=== PATIENT | male | born 1970 | race Caucasian/White ===

== ENCOUNTER 2020-03-02 12:32 | Day surgery (SDC) | payer OTHER ==
[2020-03-01 08:51] VITALS: BMI 37.2
[~2020-03-02 12:32] MED LIST: LACTATED RINGERS 1,000 ML IV SCH; LIDOCAINE 1% (10MG/ML) FOR IV START INTRADERMA PRN; MIDAZOLAM 2 MG/2 ML VIAL IV PRN
[2020-03-02 13:21] VITALS: TEMP 97
[2020-03-02] MEDS ORDERED: PROPOFOL 10 MG/ML 20 ML VIAL IV ONE (13:27)
--- NOTE | 2020-03-02 13:42 | P.PCN ---
Date of Procedure: 03/02/20 Procedure(s) Performed: BRIEF HISTORY: Patient is a 49-year-old pleasant white male scheduled for an elective colonoscopy as a part of screening for colorectal neoplasia. He has family history of colon cancer in grandfather at age 60 and colon polyps in dad and 2 siblings.. PROCEDURE PERFORMED: Colonoscopy. PREOPERATIVE DIAGNOSIS: Screening for colon cancer/family history of colon cancer. IV sedation per Anesthesia. PROCEDURE: After informed consent was obtained, the patient, was brought into [facility] endoscopy unit. IV sedation was administered by Anesthesia under continuous monitoring. Digital rectal examination was normal. Initially the Olympus CF-160 flexible video colonoscope was then inserted in the rectum, gradually advanced into the cecum without any difficulty. Careful examination was performed as the scope was gradually being withdrawn. Ileocecal valve and the appendiceal orifice were visualized and appeared normal. Prep was excellent. Mucosa of the cecum, ascending colon, transverse colon, descending colon, sigmoid colon, and rectum appeared normal. Retroflexion was performed in the rectum and no lesions were seen. The patient tolerated the procedure well. IMPRESSION: Normal-appearing colon from rectum to cecum with no evidence of colorectal neoplasia. RECOMMENDATIONS: Findings of this examination were discussed with the patient is well as his family. He was advised to have a repeat screening colonoscopy every 5 years because of the family history of colon cancer.
[2020-03-02 13:58] VITALS: BP 128/78; PULSE 66; RESP 20
== END 2020-03-02 14:32 | disposition home or self-care (01) ==
LOC: ORWHC2ENDO 12:32
PROVIDERS: ATTEND Internal Medicine Gastroenterology
DX: Z12.11 Encounter for screening for malignant neoplasm of colon (principal); I10 Essential (primary) hypertension; Z79.899 Other long term (current) drug therapy; Z80.0 Family history of malignant neoplasm of digestive organs; Z83.71 Family history of colonic polyps
CPT/HCPCS: J2704; G0105

== ENCOUNTER 2022-07-29 16:50 | Emergency (ER) | payer OTHER ==
[2022-07-29 16:57] VITALS: RESP 18; TEMP 98.2
--- NOTE | 2022-07-29 17:28 | XR ---
EXAMINATION TYPE: XR hand complete LT DATE OF EXAM: 07/29/2022 COMPARISON: NONE HISTORY: Foreign body TECHNIQUE: 3 views FINDINGS: There is a thin nail (wire sanchez) foreign body projected in the soft tissues at the base of the distal phalanx of the index finger. No fracture nor dislocation. Foreign body appears to be on th e dorsal aspect of the distal phalanx. IMPRESSION: Nail foreign body in the index finger as above. No fracture.
[2022-07-29] MEDS ORDERED: LIDOCAINE 1% INJ 10MG/ML (30 ML VIAL-PF) SQ ONE (19:07)
[2022-07-29] MEDS ORDERED: CEPHALEXIN 500MG STARTER PACK 4 CAP BTL PO STA (19:13)
--- NOTE | 2022-07-29 19:25 | ED ---
Skin/Abscess/FB HPI - General Chief complaint: Skin/Abscess/Foreign Body Stated complaint: Nail in finger,PCP sent Time Seen by Provider: 07/29/22 19:06 Source: patient, RN notes reviewed Mode of arrival: ambulatory Limitations: no limitations - History of Present Illness Initial comments: This is a pleasant, [id number], 52-year-old male who presents to the emergency department after he inadvertently sustained a nail injury to his left index finger. Is working with a nail about 4 PM. Patient ended up going to his regular physician's office was sent here for evaluation. Patient states his tetanus was updated at the office. No other injuries. His complaints of pain to the finger which is exacerbated by movement and touching of the nail itself. This involves the distal phalanx area. No headache, no fever or chills, no changes in vision or hearing, no sore throat or difficulty with speech, no neck pain, no chest pain or shortness of breath, no abdominal pain, no nausea or vomiting, no changes in urination or bowel movements, no numbness or tingling, no skin rashes or lesions. Past medical, surgical, social, and family history reviewed. complaint: foreign body - Related Data Home Medications Medication Instructions Recorded Confirmed Enalapril/Hctz (Unknown Dose) 1 tab PO DAILY 03/01/20 03/02/20 Previous Rx's Medication Instructions Recorded Cephalexin [Keflex] 500 mg PO Q6HR #28 cap 07/29/22 HYDROcodone/APAP 5-325MG [Jackson 1 tab PO Q6HR PRN 3 Days #12 tab 07/29/22 5-325] Allergies Allergy/AdvReac Type Severity Reaction Status Date / Time No Known Allergies Allergy Verified 07/29/22 16:57 Review of Systems ROS Statement: Those systems with pertinent positive or pertinent negative responses have been documented in the HPI. ROS Other: All systems not noted in ROS Statement are negative. Past Medical History Past Medical History: Hypertension Additional Past Medical History / Comment(s): FAMILY HX OF COLON POLYPS AND COLON CANCER. History of Any Multi-Drug Resistant Organisms: None Reported Past Surgical History: No Surgical Hx Reported Past Anesthesia/Blood Transfusion Reactions: Motion Sickness Additional Past Anesthesia/Blood Transfusion Reaction / Comment(s): NO ANESTHESIA HX. Past Psychological History: No Psychological Hx Reported Past Alcohol Use History: Occasional Past Drug Use History: None Reported - Past Family History Father Additional Family Medical History / Comment(s): COLON POLYPS, PTS GRAND FATHER HAD COLON CANCER. Brother(s) Additional Family Medical History / Comment(s): COLON POLYPS Sister(s) Additional Family Medical History / Comment(s): COLON POLYPS Mother Family Medical History: Deep Vein Thrombosis (DVT), Pulmonary Embolus General Exam Limitations: no limitations General appearance: alert, in no apparent distress, obese Head exam: Present: atraumatic, normocephalic, normal inspection Eye exam: Present: normal appearance, EOMI ENT exam: Present: normal exam Neck exam: Present: normal inspection. Absent: tenderness, meningismus, lymphadenopathy Respiratory exam: Present: normal lung sounds bilaterally. Absent: respiratory distress, wheezes, rales, rhonchi, stridor Cardiovascular Exam: Present: regular rate, normal rhythm, normal heart sounds. Absent: systolic murmur, diastolic murmur, rubs, gallop, clicks Extremities exam: Present: tenderness (Patient has tenderness to the distal phalanx of left index finger with a notable metallic foreign body. No other abnormalities, no other injuries. Full range of motion all joints. Full tendon strength in all planes. Pulses are normal), normal capillary refill Neurological exam: Present: alert, oriented X3, CN II-XII intact. Absent: motor sensory deficit Psychiatric exam: Present: normal affect, normal mood Skin exam: Present: warm, dry, normal color. Absent: rash Course Vital Signs 07/29/22 16:54 Temperature 98.2 F Pulse Rate 106 H Respiratory 18 Rate Blood Pressure 142/84 O2 Sat by Pulse 97 Oximetry Procedures - Forgein Body Removal Soft Tissue Consent Obtained: verbal consent Site: upper extremity (Left index finger) Anesthetic Used: lidocaine 1% (Without epinephrine) Amount (mLs): 3 Foreign Body Suspected: Metal (Nailsmall) Foreign Body Removed: yes Foreign Body Removal Technique: Other (Needle compactor driver) Patient Tolerated Procedure: well, no complications Additional Comments: Patient tolerated well. Finger soaked and diluted Betadine afterwards. Bacitracin applied. Band-Aid applied. Finger splint applied. Distal neurovascular status intact. Tendon function intact both pre-and post- application. Medical Decision Making - Medical Decision Making Foreign body was removed without difficulty. Prophylactic antibiotics with cephalexin. I did agree to a short course of Jackson. Patient given follow-up with the hand surgeon. Told to follow up for wound check in 2 days without fail. Discussed possibility of occult bony injury or other soft tissue injury such as nerve or tendon. Patient was told to return to the ER for any signs or symptoms worsen. Told to return immediately if any other problems arise. All questions answered. Treatment plan discussed. Patient in agreement Every effort has been made to ensure accuracy of this dictation. However, due to the limitations of electronic medical records and dictation devices, errors in charting still occur. Radioisotope Technologist Dr. Nguyen - Radiology Data Radiology results: report reviewed, image reviewed Disposition Clinical Impression: Foreign body of finger of left hand, Puncture wound of left index finger Narrative: Foreign body, left index fingernail Disposition: HOME SELF-CARE Condition: Good Instructions (If sedation given, give patient instructions): Soft Tissue Foreign Body (ED), Puncture Wound (ED) Additional Instructions: Take antibiotics as directed. Soak the finger in warm soapy [place] for 10-15 min utes at a time 45 times daily. Follow-up in 2 days for wound check. Follow-up with your regular physician as directed. Return to the ER immediately if any symptoms worsen, new symptoms arise, or any other problems develop. Prescriptions: Cephalexin [Keflex] 500 mg PO Q6HR #28 cap HYDROcodone/APAP 5-325MG [Jackson 5-325] 1 tab PO Q6HR PRN 3 Days #12 tab PRN Reason: Pain Is patient prescribed a controlled substance at d/c from ED?: Yes When asked, does pt state using other controlled substances?: No If prescribed controlled substance>3 days was MAPS reviewed?: Prescribed <3 Days If opioid is for acute pain is fill amount 7 days or less?: Yes If Rx opioid, was Start Talking consent form obtained?: Yes Referrals: Rocco Ho DO [Doctor of Osteopathic Medicine] - 07/31/22 Time of Disposition: 19:37
[2022-07-29] MEDS ORDERED: ACET/COD 300 MG/30 MG STARTER PACK 6 TAB BTL PO STA (19:35)
[2022-07-29] MEDS ORDERED: BACITRACIN OINT 1 EACH PACKET TOPICAL ONE (19:39)
[2022-07-29 20:02] VITALS: BP 166/96; PULSE 84
== END 2022-07-29 20:03 | disposition home or self-care (01) ==
LOC: EC 16:50
DX: S60.552A Superficial foreign body of left hand, initial encounter (principal); S61.241A Puncture wound with foreign body of left index finger without damage to nail, initial encounter; I10 Essential (primary) hypertension; Z79.899 Other long term (current) drug therapy; X58.XXXA Exposure to other specified factors, initial encounter
CPT/HCPCS: 99283; 96372; 29125; 73130; J2001